=== PATIENT | female | born 1980 | race Caucasian/White ===

== ENCOUNTER 2020-07-01 12:22 | Emergency (ER) | payer BC, SELFPAY ==
[2020-07-01 12:31] VITALS: BP 156/95; PULSE 106; RESP 20; TEMP 36.9; O2SAT 100
--- NOTE | 2020-07-01 13:05 | ED.WOUNDLAC ---
HPI - Wound/Laceration General Chief Complaint: Wound/Laceration Stated Complaint: laceration Time Seen by Provider: 07/01/20 12:37 Source: patient and RN notes reviewed Mode of arrival: ambulatory Limitations: no limitations History of Present Illness HPI narrative: Patient presents today complaining of laceration to the medial side of her left hand that she cut on a glass while she was doing dishes just prior to arrival. Denies numbness or tingling in the hand or finger. She is up-to-date on her tetanus vaccine. She currently rates her pain 2/10 and has tried no [id number] treatment prior to arrival. Related Data Home Medications Medication Instructions Recorded Confirmed bupropion HCl (smoking deter) 150 mg PO BID 07/01/20 07/01/20 methylphenidate HCl 20 mg DAILY 07/01/20 07/01/20 metoprolol tartrate 25 mg DAILY 07/01/20 07/01/20 Allergies Allergy/AdvReac Type Severity Reaction Status Date / Time No Known Allergies Allergy Verified 07/01/20 12:24 Review of Systems Review of Systems: Narrative: CONSTITUTIONAL: Denies body aches, fever, chills, or sweats. EYES: Denies visual changes, redness, or discharge. ENT: Denies rhinorrhea, congestion, sore throat, or otalgia. CARDIOVASCULAR: Denies chest pain, palpitations, or edema. RESPIRATORY: Denies cough or dyspnea. GASTROINTESTINAL: Denies abdominal pain, nausea, vomiting, or diarrhea. GENITOURINARY: Denies dysuria or hematuria. SKIN: Denies rash, itching. + Left hand laceration MUSCULOSKELETAL: Denies back pain, joint pain, or myalgia. NEUROLOGIC: Denies headache, numbness, tingling, or weakness. PSYCH: Denies depression or anxiety. [facility] Past Medical History Medical History (Updated 07/01/20 @ 14:06 by Demi Billy, [employer], ) ADD (attention deficit disorder) Hypertension Social History Social History Gender identity (if verbalized by the patient): Female Comments At time of signature, I have reviewed and agree with nursing past medical, surgical, social and family history unless otherwise noted. Please see nursing chart for further information. There is no relevant family history pertinent to the presenting complaint Exam Narrative: Exam Narrative: GENERAL: Well-appearing, well-nourished, and in no acute distress. HEAD: Normocephalic, atraumatic. EYES: EOMI. No redness or drainage. Conjunctivae normal. ENT: Mucous membranes pink and moist. NECK: Normal AROM. CHEST: No respiratory distress. EXTREMITIES: Normal range of motion. SKIN: Warm, dry, no rash. Capillary refill normal. Normal skin turgor. 3 cm full-thickness laceration to the medial portion of the left hand at the base of the finger. Full AROM against resistance of the fifth finger. Distal sensation intact. Capillary refill normal. Radial pulse normal. No edema, erythema, or ecchymosis noted. No foreign bodies noted. NEURO: No focal deficits. Alert and oriented x3. Gait steady. PSYCH: Normal affect. No signs of depression or anxiety. Course Vital Signs Vital signs: Vital Signs Temperature 98.5 F 07/01/20 12:31 Pulse Rate 106 H 07/01/20 12:31 Respiratory Rate 20 07/01/20 12:31 Blood Pressure 156/95 H 07/01/20 12:31 Pulse Oximetry 100 07/01/20 12:31 Temperature 98.5 F 07/01/20 12:31 Pulse Rate 106 H 07/01/20 12:31 Respiratory Rate 20 07/01/20 12:31 Blood Pressure 156/95 H 07/01/20 12:31 Pulse Oximetry 100 07/01/20 12:31 Reviewed. Pt has been instructed to follow up with her PCP regarding her elevated blood pressure today. Procedures Laceration Laceration 1: Date: 07/01/20 Time: 12:45 Site: upper extremity Side (If applicable): left Size (cm): 3 Description: irregular Depth: simple, single layer Local Anesthetic: lidocaine 1% Amount of anesthesia used (mL): 3 Pre-repair: wound explored, irrigated and deep structures intact ====== Skin Level ======
== END 2020-07-01 13:11 | disposition home or self-care (01) ==
PROVIDERS: Emergency Provider Nurse Practitioner
DX: S61.412A Laceration without foreign body of left hand, initial encounter (principal); W25.XXXA Contact with sharp glass, initial encounter; Y93.G1 Activity, food preparation and clean up; F98.8 Other specified behavioral and emotional disorders with onset usually occurring in childhood and adolescence; I10 Essential (primary) hypertension
CPT/HCPCS: 12002; 99212; G0463